=== PATIENT | male | born 1965 | race Caucasian/White ===

== ENCOUNTER → 2017-04-12 | Outpatient (CLI) | payer OTHER | LOC: BMCIMAGING 16:35 | PROVIDERS: ATTEND Podiatrist Foot & Ankle Surgery | DX: M79.671 Pain in right foot (principal) ==

== ENCOUNTER 2017-07-06 11:49 | Inpatient (IN) | payer OTHER ==
--- NOTE | 2017-07-06 12:19 | CPEKG ---
Heart Rate: 49 RR Interval: 1224 P-R Interval: 124 QRSD Interval: 86 QT Interval: 432 QTC Interval: 390 P [place]: 0 QRS [place]: 72 T Wave [place]: 69 EKG Severity - ABNORMAL ECG - EKG Impression: SINUS BRADYCARDIA EKG Impression: NONSPECIFIC T ABNORMALITIES, ANTERIOR LEADS Electronically Signed By: Susan Lepe 06-Jul-2017 16:19:06
[2017-07-06] MEDS ORDERED: ASPIRIN 81 MG CHEWABLE TAB PO ONE (12:39)
[2017-07-06 12:46] LABS: PLATELET COUNT 244 10^3/uL (150-400)
--- NOTE | 2017-07-06 12:50 | EDPHY ---
HPI/HX/ROS/PE/MDM Narrative: CHIEF COMPLAINT: Chest pain with exertion HISTORY OF PRESENT ILLNESS: The patient is a 52 y/o male with minimal medical history who arrives with his girlfriend at the recommendation of his PCP for evaluation of progressive episodes of chest pain over the last week. Last weekend during vigorous exercise while biking up [place] he noticed "diffuse, broad chest pain spreading down both arms and into the back of my neck." He attributed symptoms to being out of shape and pushed through with gradual resolution of symptoms by the end of the ride. He biked again the second day and developed similar symptoms. Three days ago he went on a low intensity bike ride across the city and developed the same pain, but much sooner in the ride and associated with sweating and shortness of breath. Yesterday he wore a heart rate monitor while on one of his typical hikes and developed the same symptoms about retirement up; he notes his heart rate was stable throughout. To see if he could elicit symptoms again, today he wore the monitor and walked up a small hill by his house, which caused symptoms almost immediately. At this point he stopped and called his PCP who referred him to the ED for evaluation. His pain is most severe substernally and he says, "my heart feels heavy" with occasional pulsing. It's possibly associated with dyspnea, but it's hard for him to tell if this is abnormal since symptoms have primarily occurred during exercise. Upon assessment, he currently feels at baseline with no pain. He denies personal history of cardiac disease history, diabetes, hypertension, hypercholesterolemia, or clotting disorders. He has a concerning family history of severe CAD in his father, who was also physically fit, that required bypass at age 55 and a sister who had a stroke age 47. He notes 2 years ago he had occasional chest pain and dyspnea that woke him from sleep. Due to this and his family history, he completed a stress test at that time, which he was told was normal. He also notes he has been treating tendonitis in his lower extremities using topical lidocaine and this morning had a branch lead perform trigger point injections of "homeopathic botanicals" in his right ankle, leg, and hip today. No fever, chills, palpitations, vomiting, diarrhea, urinary complaints, headache , lightheadedness, leg swelling. REVIEW OF SYSTEMS: Aside from elements discussed in the HPI, a comprehensive 10-point review of systems was reviewed and is negative. PAST MEDICAL HISTORY: Achilles tendonitis, plantar fascitis, environmental allergies FAMILY HISTORY: Father who was also quite fit needed cardiac bypass at age 55 for severe CAD. Sister had stroke of unknown etiology age 47. SOCIAL HISTORY: Girlfriend at bedside. 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 Employed. PCP: Dr. Ashkan Gregory VITAL SIGNS: Reviewed by me GENERAL: Well-developed, well-nourished, resting comfortably in no respiratory distress. HEENT: Atraumatic. Eyes: No icterus, no injection. Mouth: moist mucous membranes. No erythema or lesions. Neck: supple with no adenopathy, no JVD. LUNGS: Clear to auscultation bilaterally, no wheezes, rhonchi or rales. CARDIAC: Regular rate and rhythm, no rubs, murmurs or gallops. ABDOMEN: Soft, nontender, nondistended, bowel sounds normal. BACK: No CVA tenderness. EXTREMITIES: No trauma. No edema. Range of motion is normal throughout. NEURO: Alert and oriented, grossly nonfocal. SKIN: Warm and mild diaphoresis on back, no rash. PSYCHIATRIC: Normal mentation, no agitation. Portions of this note were transcribed by a biomedical engineering technologist. I personally performed a history, physical exam, medical decision making, and confirmed accuracy of information the transcribed note. ED Course: This is a healthy 52 y/o male who presents with a 1-week history of recurrent and progressive episodes of substernal chest pain at exertion. His father who was also physically fit had an 85% occlusion of his LAD and required bypass at age 55. He is currently asymptomatic and has an unremarkable exam apart from mild diaphoresis on his back. Presentation concerning for cardiac ischemia of LAD due to symptoms, family history, and abnormal EKG with biphasic precordial leads rental representative of Wellens criteria. Plan for IV, labs, chest x-ray, cardiology consult. 324mg PO aspirin administered. The 12 lead EKG was interpreted by myself. Sinus bradycardia rate 49 with abnormal biphasic T waves in precordial leads, meets Wellens criteria. See hard copy and/or "tracemaster" electronic copy for interpretation. 1300: Consulted with Dr. Rees, credentialing analyst. He will evaluate patient in the ED. Dr. Rees agrees with my impression that the patient's EKG is quite concerning for Wellens syndrome a most likely represents a stricture or clot or stenosis at the takeoff of the LAD. Patient was taken to the labor law professor by Dr. Rees. Critical care time spent by me, Dr. Lepe exclusively with this patient was 5 minutes, exclusive of PA time and exclusive of procedures. The organ system at risk was cardiac and I gave aspirin, interpret the EKG, consulted emergently with Cardiology, to prevent worsening of the patients condition. Critical care time included obtaining history, performing a physical exam, bedside monitoring of interventions, collecting and interpreting tests and discussion with consultants but not including time spent performing procedures. MDM: After history and physical examination, the differential for chest pain was considered, including but not limited to, myocardial ischemia, acute coronary syndrome, pulmonary embolus, chest wall pain, pleural inflammation and pulmonary infectious causes. - Data Points Imaging Results: Imaging Impressions Chest X-Ray 07/06/17 12:52 Impression: Normal. Imaging: I viewed and interpreted images myself Laboratory Results: Laboratory Results 07/06/17 12:33 07/06/17 12:33 07/06/17 07/06/17 12:33 12:33 WBC 5.58 10^3/uL 10^3/uL (3.80-9.50) RBC 5.36 10^6/uL 10^6/uL (4.40-6.38) Hgb 16.5 g/dL g/dL (13.7-17.5) Hct 47.5 % % (40.0-51.0) MCV 88.6 fL fL (81.5-99.8) MCH 30.8 pg pg (27.9-34.1) MCHC 34.7 g/dL g/dL (32.4-36.7) RDW 12.4 % % (11.5-15.2) Plt Count 244 10^3/uL 10^3/uL (150-400) MPV 10.6 fL fL (8.7-11.7) Neut % (Auto) 63.0 % % (39.3-74.2) Lymph % (Auto) 27.6 % % (15.0-45.0) [place] % (Auto) 7.9 % % (4.5-13.0) Eos % (Auto) 0.7 % % (0.6-7.6) Baso % (Auto) 0.4 % % (0.3-1.7) Nucleat RBC Rel Count 0.0 % % (0.0-0.2) Absolute Neuts (auto) 3.52 10^3/uL 10^3/uL (1.70-6.50) Absolute Lymphs (auto) 1.54 10^3/uL 10^3/uL (1.00-3.00) Absolute Monos (auto) 0.44 10^3/uL 10^3/uL (0.30-0.80) Absolute Eos (auto) 0.04 10^3/uL 10^3/uL (0.03-0.40) Absolute Basos (auto) 0.02 10^3/uL 10^3/uL (0.02-0.10) Absolute Nucleated RBC 0.00 10^3/uL 10^3/uL (0-0.01) Immature Gran % 0.4 % % (0.0-1.1) Immature Gran # 0.02 10^3/uL 10^3/uL (0.00-0.10) Sodium 143 mEq/L mEq/L (135-145) Potassium 4.3 mEq/L mEq/L (3.5-5.2) Chloride 106 mEq/L mEq/L (97-110) Carbon Dioxide 27 mEq/l mEq/l (22-31) Anion Gap 10 mEq/L mEq/L (8-16) BUN 13 mg/dL mg/dL (7-23) Creatinine 0.9 mg/dL mg/dL (0.7-1.3) Estimated GFR > 60 Glucose 89 mg/dL mg/dL (70-100) Calcium 9.5 mg/dL mg/dL (8.5-10.4) Total Bilirubin 0.6 mg/dL mg/dL (0.1-1.4) AST 21 IU/L IU/L (17-59) ALT 39 IU/L IU/L (21-72) Alkaline Phosphatase 60 IU/L IU/L (38-126) Troponin I < 0.012 ng/mL ng/mL (0.000-0.034) Total Protein 6.9 g/dL g/dL (6.3-8.2) Albumin 4.4 g/dL g/dL (3.5-5.0) Medications Given: Discontinued Medications Aspirin (Aspirin) 324 mg PO EDNOW ONE Stop: 07/06/17 12:40 Last Admin: 07/06/17 12:42 Dose: 324 mg General Time Seen by Provider: 07/06/17 12:25 Initial Vital Signs: Initial Vital Signs Temperature (C) 37.2 C 07/06/17 12:18 Heart Rate 45 L 07/06/17 12:18 Respiratory Rate 18 07/06/17 12:18 Blood Pressure 119/76 07/06/17 12:18 O2 Sat (%) 98 07/06/17 12:18 O2 Delivery Mode Room Air O2 (L/minute) 2 Allergies/Adverse Reactions: Penicillins Allergy (Verified 07/06/17 13:14) Hives Home Medications: Medication Instructions Recorded Fexofenadine HCl [Sonya Allergy] 60 mg PO DAILY 07/06/17 Fluticasone Nasal [Flonase Nasal 1 sprays NASAL DAILY PRN 07/06/17 [place]] Aspirin EC [Aspirin EC 325 mg (*)] 325 mg PO DAILY #60 tab 07/08/17 Lisinopril [Zestril 2.5 mg (*)] 2.5 mg PO DAILY #90 tab 07/08/17 Prasugrel HCl [Effient 10mg (*)] 10 mg PO DAILY #90 tab 07/08/17 Rosuvastatin Calcium [Crestor 20mg 20 mg PO DAILY #90 tab 07/08/17 (*)] Departure - Departure Disposition: [facility] Inpatient Acute Clinical Impression: wellens syndrome by EKG Chest pain Qualifiers: Chest pain type: chest pain due to myocardial ischemia Ischemic chest pain type : unstable angina pectoris Qualified Code(s): I20.0 - Unstable angina Condition: Good Report Scribed for: Susan Lepe Report Scribed by: Tracey uQiros Date of Report: 07/06/17 Time of Report: 12:58
[2017-07-06] MEDS ORDERED: CLOPIDOGREL BISULFATE 75 MG TAB ONE (13:03)
[2017-07-06] MEDS ORDERED: LIDOCAINE 1% 300 MG/30 ML SDV ONE (13:59)
[2017-07-06] MEDS ORDERED: fentaNYL 100 MCG/2 ML INJ ONE ×2 (14:00→14:29)
[2017-07-06] MEDS ORDERED: IOPAMIDOL (ISOVUE-370) 150 ML BTL IV ONE ×3 (14:00→15:12)
[2017-07-06] MEDS ORDERED: MIDAZOLAM 2 MG/2 ML VIAL ONE ×2 (14:00→14:29)
--- NOTE | 2017-07-06 14:20 | PDPROPOC ---
Sedation Plan of Care Sedation Plan of Care: vital signs stable, mental status noted, patient educated of risks, benefits, alternatives, patient can tolerate sedation ASA Classification: ASA 4 Planned drugs: fentanyl, midazolam Mallampati Score: Class 3 Mallampati Reference Image: Patient passed 3-3-2 rule?: Yes
--- NOTE | 2017-07-06 14:20 | ASMTLACE ---
[place] Acuity / Level of Answers: Yes Care: Did the patient have an inpatient admission? # of Emergency department Answers: 1-2 visits in the last 6 months Score: 4 Date Signed: 07/06/2017 02:19 PM Electronically Signed By:Harika Jansen RN
--- NOTE | 2017-07-06 14:27 | PDGENHP ---
History and Physical - Chief Complaint chest discomfort - History of Present Illness Pt with typical and classic angina increasing in frequency duration and intensity. He has a Wellen's T wave on EKG suggestive of LAD obstruction. History Information - Allergies/Home Medication List Allergies/Adverse Reactions: Penicillins Allergy (Verified 07/06/17 13:14) Hives Home Medications: Fexofenadine HCl [Sonya Allergy] 60 mg PO DAILY 07/06/17 [Last Taken 07/06/17] Fluticasone Nasal [Flonase Nasal [place] (RX)] 1 sprays NASAL DAILY PRN 07/06/17 [ Last Taken 5 Days Ago ~07/01/17] I have personally reviewed and updated: family history, medical history, social history, surgical history - Surgical History Reports: no pertinent surgical hx - Family History Positive for: father with history of CAD younger than 55 - Social History Smoking Status: Never smoked Alcohol Use: Occasionally Drug Use: None Review of Systems Review of Systems: Constitutional: Reports: no symptoms EENMT: Reports: no symptoms Cardiac: Reports: chest pain Respiratory: Reports: shortness of breath Genitourinary: Reports: no symptoms Muscolosketal: Reports: calf pain Skin: Reports: no symptoms Neurological: Reports: no symptoms Hematologic/Lymphatic: Reports: no symptoms Immunologic/Allergy: Reports: no symptoms Physical Exam Physical Exam: Temp Pulse Resp BP Pulse Ox 37.2 C 48 L 16 145/92 H 100 07/06/17 12:18 07/06/17 13:33 07/06/17 13:33 07/06/17 13:33 07/06/17 13:33 Constitutional: no apparent distress Eyes: PERRL, anicteric sclera Ears, Nose, Mouth, Throat: moist mucous membranes, hearing normal Cardiovascular: regular rate and rhythym, no murmur, rub, or gallop, bradycardia , No systolic murmur, No JVD, No tachycardia Respiratory: no respiratory distress Gastrointestinal: normoactive bowel sounds Genitourinary: no bladder fullness Skin: warm, normal color Musculoskeletal: full muscle strength Psychiatric: interacting appropriately, anxious Lab Data & Imaging Review 07/06/17 12:33 07/06/17 12:33 WBC 5.58 10^3/uL (3.80-9.50) 07/06/17 12:33 RBC 5.36 10^6/uL (4.40-6.38) 07/06/17 12:33 Hgb 16.5 g/dL (13.7-17.5) 07/06/17 12:33 Hct 47.5 % (40.0-51.0) 07/06/17 12:33 MCV 88.6 fL (81.5-99.8) 07/06/17 12:33 MCH 30.8 pg (27.9-34.1) 07/06/17 12:33 MCHC 34.7 g/dL (32.4-36.7) 07/06/17 12:33 RDW 12.4 % (11.5-15.2) 07/06/17 12:33 Plt Count 244 10^3/uL (150-400) 07/06/17 12:33 MPV 10.6 fL (8.7-11.7) 07/06/17 12:33 Neut % (Auto) 63.0 % (39.3-74.2) 07/06/17 12:33 Lymph % (Auto) 27.6 % (15.0-45.0) 07/06/17 12:33 [place] % (Auto) 7.9 % (4.5-13.0) 07/06/17 12:33 Eos % (Auto) 0.7 % (0.6-7.6) 07/06/17 12:33 Baso % (Auto) 0.4 % (0.3-1.7) 07/06/17 12:33 Nucleat RBC Rel Count 0.0 % (0.0-0.2) 07/06/17 12:33 Absolute Neuts (auto) 3.52 10^3/uL (1.70-6.50) 07/06/17 12:33 Absolute Lymphs (auto) 1.54 10^3/uL (1.00-3.00) 07/06/17 12:33 Absolute Monos (auto) 0.44 10^3/uL (0.30-0.80) 07/06/17 12:33 Absolute Eos (auto) 0.04 10^3/uL (0.03-0.40) 07/06/17 12:33 Absolute Basos (auto) 0.02 10^3/uL (0.02-0.10) 07/06/17 12:33 Absolute Nucleated RBC 0.00 10^3/uL (0-0.01) 07/06/17 12:33 Immature Gran % 0.4 % (0.0-1.1) 07/06/17 12:33 Immature Gran # 0.02 10^3/uL (0.00-0.10) 07/06/17 12:33 Sodium 143 mEq/L (135-145) 07/06/17 12:33 Potassium 4.3 mEq/L (3.5-5.2) 07/06/17 12:33 Chloride 106 mEq/L (97-110) 07/06/17 12:33 Carbon Dioxide 27 mEq/l (22-31) 07/06/17 12:33 Anion Gap 10 mEq/L (8-16) 07/06/17 12:33 BUN 13 mg/dL (7-23) 07/06/17 12:33 Creatinine 0.9 mg/dL (0.7-1.3) 07/06/17 12:33 Estimated GFR > 60 07/06/17 12:33 Glucose 89 mg/dL (70-100) 07/06/17 12:33 Calcium 9.5 mg/dL (8.5-10.4) 07/06/17 12:33 Total Bilirubin 0.6 mg/dL (0.1-1.4) 07/06/17 12:33 AST 21 IU/L (17-59) 07/06/17 12:33 ALT 39 IU/L (21-72) 07/06/17 12:33 Alkaline Phosphatase 60 IU/L (38-126) 07/06/17 12:33 Troponin I < 0.012 ng/mL (0.000-0.034) 07/06/17 12:33 Total Protein 6.9 g/dL (6.3-8.2) 07/06/17 12:33 Albumin 4.4 g/dL (3.5-5.0) 07/06/17 12:33 Imaging Review: CXR is normal except for plaque in aortic knob Visualized and Interpreted Chest x-ray results: Yes Chest X-Ray results: no infiltrate Visualized and Interpreted EKG results: Yes EKG additional interpertation: sinus zoraida with Wellen's T wave Assessment & Plan Assessment: Angina pectoris unstable in presentation and new in onset. Needs cath because of 90% chance of LAD obstruction. I have discussed risk,benefits, and alternative therapy. Thoroughly discussed risks involved with procedure including , stroke, and CO.
[2017-07-06] MEDS ORDERED: BIVALIRUDIN 250 MG/5 ML VIAL IV ONE (14:46)
[2017-07-06] MEDS ORDERED: NITROGLYCERIN 1,500 MCG/15 ML VIAL MISC ONE (14:59)
[2017-07-06] MEDS ORDERED: PRASUGREL HCL 10 MG TAB ONE (15:33)
--- NOTE | 2017-07-06 15:38 | PDDXCAT ---
Diagnostic Cath Note - . Date: 07/06/17 Certified Pesticide Applicator: Cabrera Indication: other (unstable angina with abnormal EKG and Wellen's T wave...) Patient Problems: Problems Problem Status Onset Chest pain Acute
[2017-07-06] MEDS ORDERED: HYDROCODONE/APAP 5/325 TAB PO PRN (15:39)
[2017-07-06] MEDS ORDERED: NITROGLYCERIN 0.4 MG BTL SL PRN (15:39)
[2017-07-06] MEDS ORDERED: ONDANSETRON 4 MG/2 ML VIAL IVP PRN (15:39)
[2017-07-06] MEDS ORDERED: PRASUGREL HCL 10 MG TAB PO ONE (15:39)
[2017-07-06] MEDS ORDERED: TEMAZEPAM 15 MG CAP PO PRN (15:39)
[2017-07-06] MEDS ORDERED: OXYCODONE/APAP 5/325 TAB PO PRN (15:39)
[2017-07-06] MEDS ORDERED: ATROPINE SULFATE 1 MG/10 ML SYR IVP PRN (15:39)
[2017-07-06] MEDS ORDERED: LORazepam 2 MG/ML INJ IVP PRN (15:39)
[2017-07-06] MEDS ORDERED: NS 1,000 ML IV SCH (15:45)
--- NOTE | 2017-07-06 15:48 | PDDXCAT ---
Diagnostic Cath Note - . Date: 07/06/17 R&D Engineer: Cabrera Indication: other (unstable angina with a Wellen's T wave) - Procedure Access: right groin Procedure: left heart catheterization, coronary angiography, left ventriculogram - Materials Left Heart Cath size: 6F Left Heart Cath materials: standard multipack (JL4, JR4, pigtail) - Findings-Left Heart Catheterization LM: 6 mm in size and relatively short bifurcates into an LAD and circumflex system. LAD: 3.5 mm in size proximally with 95% lesion and LAM III flow distally. 80% ostial lesion of small D2 branch coming off in disease region of LAD. LCX: 3 mm in size proximally with 71% plaque area stenosis by QCA of Beta branch of obtuse marginal system. RCA: Dominant vessel and 4 mm in size proximally with a 40-50% hazy stenosis in the mid right proximal to acute marginal branches. EDP: 12mmHg LVEF: 55% with mild mid and distal anterior wall hypokinesis. No significant mitral regurgitation. 3 sinuses of valsalva consistent with 3 leaflet aortic valve. No evidence of dissection or dandre aneurysm. Wall motion: See above. Patient Problems: Problems Problem Status Onset Chest pain Acute
--- NOTE | 2017-07-06 16:03 | CPEKG ---
Heart Rate: 41 RR Interval: 1463 P-R Interval: 140 QRSD Interval: 90 QT Interval: 492 QTC Interval: 407 P Coleman: -2 QRS Coleman: 53 T Wave Coleman: 52 EKG Severity - ABNORMAL ECG - EKG Impression: SINUS BRADYCARDIA EKG Impression: ABNORMAL T, CONSIDER ISCHEMIA, ANT-LAT LEADS EKG Impression: WELLENS SYNDROME-- ABNORMAL EKG-- Electronically Signed By: Susan Lepe 06-Jul-2017 16:18:54
--- NOTE | 2017-07-06 16:04 | PDDXCAT ---
Diagnostic Cath Note - . Date: 07/06/17 Complications: NONE Closure method: manual pressure Assessment: Critical and flow limiting disease of proximal LAD as well as moderately severe disease of left circ as noted above. Plan: See intervention note below. The patient will require dual antiplatelet therapy with ASA and Effient to complete 1 year post stent implant with no elective surgery for the next 3 months. Any decision to stop dual antiplatelet therapy in the exception of life threatening bleeding should involve my office at [phone]. the patient will require moderate to high dose statin therapy as well as low dose NARA therapy to improve vascular health and reduce bed bug exterminator risk of /CA. Significant CAD for a 52 year old man. Intervention: JL4 guiding catheter for guide support, EBU 3.5 for circumflex intervention, 0.014 intuition wire for LAD, 0.014 Choice floppy for circumflex... Lad 95% pre and 0% post PTCA stent with pre dilation with a 2.0/15 mm Emerge balloon followed by stenting with a 3X20mm 28 Synergy ERNA with LAM III flow pre and post in LAD and all vessels...Mild pinch of small D2 branch less than 1.5 in size and 80% stenosis to 95% ostial stenosis post LAD stent. 71% plaque area stenosis with 0% residual post primary stent with a 2.5X12mm Synergy drug eluting stent. Patient Problems: Problems Problem Status Onset Chest pain Acute
[2017-07-07 04:06] LABS: PLATELET COUNT 214 10^3/uL (150-400)
--- NOTE | 2017-07-07 09:08 | PDCARPN ---
Cardiology Progress Note Chief Complaint: Chest Discomfort / pain Assessment/Plan: Assessment: Acute Coronary Syndrome. Presented to ER with chest tightness /pressure pain. EKG was abnormal with Wellens sign and was taken Urgently to Cardiac farm laborer by Camilo Rees MD. CAD S/p Cardiac Angiogram: LAD found to have 95% lesion, and 80 % ostial lesion of small D2 branch off the disease area of the LAD. LCx 71% lesion and both PCI with Synergy ERNA. RCA 40 to 50 % lesion, to be treated medically. His EF is 55% with mild mid to distal anterior wall hypokinesis. He is on Effient and ASA 325 mg daily, and started o0n low dose Bystolic due to his bradycardic rate of 40's. This HR is usual for him to have a heart rate in the 40's as he is an avid bicyclist. Over an hour of time was spent with he and his reviewing the procedure and answering questions. He would like to see the angiogram films, and I will ask Garry Epperson MD to review those with him tomorrow. Arrhythmias: NS-VT, Bradycardia (as noted above). Plan: Remain in hospital today to monitor his rhythm closely. Possible discharge tomorrow. 07/07/17 09:04 07/07/17 12:58 Subjective: I feel great today. Not aware of any rapid heart rates. No chest pain or SOB. Reviewed/Discussed With: family, multidisciplinary team Time Spent With Patient: 60 minutes Objective: Vital Signs (8 Hrs) Temp Pulse Resp BP Pulse Ox 07/07/17 04:00 37.1 C 53 L 16 123/77 H 97 Intake/Output (24 Hrs) 07/06/17 07/07/17 07/08/17 05:59 05:59 06:59 Intake Total 1575 Output Total 625 Balance 950 Intake: Oral (ml) 550 IV Intake (ml) 25 IV Infused (ml) 1000 Ns 1,000 ml @ 100 mls/hr 1000 IV CONT FILEMON Rx#: [id number] Output: Urine (ml) 625 Urinal 625 Other: Weight 78.925 kg Intake Quantity Yes Sufficient Number of Voids Toilet 1 Result Diagrams: 07/07/17 03:38 07/07/17 03:38 - Physical Exam Constitutional: no apparent distress Cardiovascular: regular rate and rhythm, no murmurs, no rubs, no gallops Peripheral Pulses: 2+: dorsalis-pedis (R), dorsalis-pedis (L) Respiratory: clear to auscultate bilat, no crackles, no wheezes Skin: warm, no edema Neurologic: AAOx3 Psychiatric: cooperative, interactive ICD10 Worksheet Patient Problems: Problems Problem Status Onset Chest pain Acute
[2017-07-07] MEDS: ROSUVASTATIN CALCIUM 20 MG TAB PO SCH (09:12)
[2017-07-07] MEDS: LISINOPRIL 2.5 MG TAB PO SCH (09:12)
[2017-07-07] MEDS: ASPIRIN EC 325 MG TAB PO SCH (09:13)
[2017-07-07] MEDS: PRASUGREL HCL 10 MG TAB PO SCH (09:13)
--- NOTE | 2017-07-07 10:37 | PDMN ---
Medical Necessity Medical necessity: C/M review: Patient meets INPT crtieria under MCG m-89 Chest pain, M-40 Angina, M-510 Supraventricular arrhythmias: Acute chest pain, acute coronary syndrome, unstable angina with a Wellen's T wave requiring emergent 07/06/2017 cardiac catheterization - [facility] which showed 95% stenosis LAD lesion, left circumflex 71% plaque area stenosis, RCA dominant vessel 40-50% stenosis in mid right proximal to acute marginal branches requiring PCI with stent x 2 to LAD and left circumflex, acute arrhythmias - NS-VT, acute and persistent bradycardia - heart rate 42-53 requiring ongoing cardiac monitoring, close monitoring, dual antiplatelet therapy - oral aspirin, Effient. IMPORT CUSTOMS CLEARING AGENT expects > 2 MN LOS for ongoing med nec for eval and TX of above.
--- NOTE | 2017-07-07 10:48 | CPEKG ---
Heart Rate: 51 RR Interval: 1176 P-R Interval: 140 QRSD Interval: 86 QT Interval: 428 QTC Interval: 395 P [place]: 30 QRS [place]: 71 T Wave [place]: 67 EKG Severity - ABNORMAL ECG - EKG Impression: SINUS RHYTHM EKG Impression: ABNORMAL T, CONSIDER ISCHEMIA, ANTERIOR LEADS Electronically Signed By: Gabino Chaudhari 07-Jul-2017 15:21:30
[2017-07-07] MEDS ORDERED: FLUTICASONE NASAL 120 SPRAYS/16 GM MDI EACHNARE PRN (11:14)
--- NOTE | 2017-07-07 16:17 | ASMTCMCOM ---
CM Note CM Note Notes: Chart reviewed. Patient 52 year old male s/p angiogram and stents. No current needs identified at this time. CM available should needs arise. Date Signed: 07/07/2017 04:16 PM Electronically Signed By:Baylee Khan RN
[2017-07-08] MEDS: PRASUGREL HCL 10 MG TAB PO SCH (08:58)
[2017-07-08] MEDS: LISINOPRIL 2.5 MG TAB PO SCH (08:58)
[2017-07-08] MEDS: ASPIRIN EC 325 MG TAB PO SCH (08:58)
[2017-07-08] MEDS: ROSUVASTATIN CALCIUM 20 MG TAB PO SCH (08:58)
[2017-07-08] MEDS ORDERED: NON-FORMULARY NEW DRUG (Fexofenadine Hcl [Allegra Allergy] 60 MG) PO SCH (09:00)
[2017-07-08] MEDS ORDERED: CETIRIZINE 10 MG TAB PO SCH (09:00)
[2017-07-08 10:03] VITALS: TEMP 98
[2017-07-08 12:14] VITALS: BP 112/77; PULSE 58; RESP 17; O2SAT 96
--- NOTE | 2017-07-08 12:17 | PDCARPN ---
Cardiology Progress Note Chief Complaint: No cardiovascular complaints today. Multiple questions about residual CAD to the RCA Assessment/Plan: Assessment: Patient is a 52 y/o male with previously unremarkable past medical history (no prior HTN, HLP, DM, or CAD), who presented with complaints of chest pains. Angiography yesterday with critical LAD lesion and critical OM2 lesion. There was also a lesion to the RCA, but assessment suggested 35% stenosis. Normal LVEF was noted with subtle wall motion abnormalities appreciated. Today, the patient is doing very well. No cardiovascular complaints of chest pains or pressure. No issues with newly added therapy, but the patient did report that he has been prone to nose bleeds in the past. Plan: (1) Discharge to home today (2) Would continue therapy on ASA and Effient (3) ACEi therapy alone given the blood pressures noted and slower heart rates (4) Statins (Crestor) should continue with reassessment of cholesterol and LFTs in 5 weeks (5) Cardiac rehab should be set up (6) Would arrange for patient to have ETT (non nuclear) for non invasive assessment of the RCA lesion (7) Patient should be seen by cardiology in 7-10 days Subjective: No active cardiovascular complaints Reviewed/Discussed With: family, multidisciplinary team Objective: Vital Signs (8 Hrs) Temp Pulse Resp BP Pulse Ox 07/08/17 12:10 58 L 17 112/77 96 07/08/17 08:45 36.7 C 48 L 12 124/86 H 98 Intake/Output (24 Hrs) 07/07/17 07/08/17 07/09/17 04:59 05:59 05:59 Intake Total Balance Intake: Oral (ml) Other: Intake Quantity Sufficient Number of Voids Toilet Result Diagrams: 07/07/17 03:38 07/07/17 03:38 Telemetry: sinus rhythm - Physical Exam Constitutional: WDWN, healthy appearing, no apparent distress Eyes: PERRL, EOMI Ears, Nose, Mouth, Throat: moist mucous membranes Cardiovascular: regular rate and rhythm, no murmurs, no rubs, no gallops, pulses symmetric bilat, No jugular vein distention Peripheral Pulses: 2+: dorsalis-pedis (R), dorsalis-pedis (L) Respiratory: clear to auscultate bilat, no crackles, no wheezes Gastrointestinal: normoactive bowel sounds, no tenderness Skin: no rashes, no edema Musculoskeletal: no muscular tenderness Neurologic: AAOx3, CN II-XII grossly intact Psychiatric: cooperative, interactive, following commands ICD10 Worksheet Patient Problems: Problems Problem Status Onset Chest pain Acute
--- NOTE | 2017-07-08 14:35 | PDDCSUM ---
Discharge Summary Discharge Summary: Admission date: 07/06/17 Discharge date: 07/08/17 Admission diagnosis: Acute coronary syndrome Procedures performed: (1) Serial ECG and enzymes (2) Telemetry monitoring (3) Left heart catheterization (4) PCI to critical lesions of the LAD and LCX vessels Hospital stay: Patient was taken to the cardiac cath lab radiology technician by Dr. Tyler Rees given symptoms and ECG changes noted. Critical lesions were noted to the LAD and the LCX OM2. A third lesion was noted to the RCA, but did not appear to be critical. LVEF was noted to be normal with subtle hypokinesis to the mid and distal anterior wall. Patient was placed on the PCU overnight and monitored. Non sustained VT was noted overnight after angiogram as well as bradycardia, and the patient was kept overnight one night further. No VT was noted on night two. No cardiovascular complaints of chest pains or pressure. Discharge medications (1) ASA (325 mg) (2) Effient (10 mg) (3) Crestor (20 mg) (4) Lisinopril (2.5 mg) Would have the patient seen by cardiology in 7 days. Cardiac rehab should be arranged and started Would arrange for patient to have ETT given the residual RCA lesion noted Cholesterol and LFTs should be reassessed in 5 weeks.
== END 2017-07-08 13:31 | disposition home or self-care (01) | DRG 247 ==
LOC: F2W 18:33 → OBSVTOIN 07-07 10:15
PROVIDERS: ADMIT Internal Medicine Cardiovascular Disease; ATTEND Internal Medicine Cardiovascular Disease
DX: I25.110 Atherosclerotic heart disease of native coronary artery with unstable angina pectoris (principal); R94.31 Abnormal electrocardiogram [ECG] [EKG]; Z82.49 Family history of ischemic heart disease and other diseases of the circulatory system; Z82.3 Family history of stroke; Z88.0 Allergy status to penicillin
CPT/HCPCS: C1725; C1769; C1874; C1887; C9600; G0378; J0461; J0583; J1200; J1644; J2250; J3010; Q9967

== ENCOUNTER 2017-10-10 22:39 | Emergency (ER) | payer OTHER ==
[2017-10-10 23:00] VITALS: BP 121/80
--- NOTE | 2017-10-10 23:04 | EDPHY ---
H & P Stated Complaint: NOSE BLEED SINCE 11 AM/ON BLOOD THINNERS, HX OF NOSE BLEEDS Time Seen by Provider: 10/10/17 23:02 HPI/ROS: HPI: This is a 52-year-old male who presents with Chief Complaint: NOSE BLEED SINCE 11 AM/ON BLOOD THINNERS, HX OF NOSE BLEEDS Location: Right nostril Quality: Bleeding Duration: 12 hr Signs and Symptoms: no fever, no nausea, no vomiting, no photophobia, no noise sensitivity, no neck stiffness, no ear pain, no tinnitus, no nasal congestion, no sinus pressure, no weakness, no radiation, no aura Timing: Acute, intermittent episodes Severity: Moderate Context: Patient has a history of cardiac stents and takes On Effient and aspirin for the last year. He reports that he has almost daily nose bleeds but normally is relieved by direct pressure and using Afrin spray. He reports that he does have moderate seasonal allergies that have been irritating his nasal passages over the last few days. Patient reports that he used Afrin 3 times today as well as applied direct pressure with minimal relief. Denies any chest pain, shortness of breath, dizziness. Patient reports that he has been seen by ENT and told that he is not a candidate for embolization. Modifying Factors: See above Comment: ROS: see HPI Constitutional: No fever, no chills, no weight loss Eyes: No blurred vision Respiratory: No shortness of breath, no cough Cardiovascular: No chest pain, no palpitations Gastrointestinal: No nausea, no vomiting, no diarrhea, no hematemesis, no blood in stool Genitourinary: No dysuria, no blood in urine Extremities: No myalgias, no edema Neurologic: No weakness, no numbness Skin: No rashes, no petechiae Hematologic: No bruising, no bleeding MEDICAL/SURGICAL/SOCIAL HISTORY: Medical history: HX NOSE BLEEDS, CARDIAC STENTS 06/2017 ON BLOOD THINNERS Surgical history: Denies Social history: Family history noncontributory. CONSTITUTIONAL: Polite and cooperative adult male, awake and alert, no obvious distress HEENT: Atraumatic and normocephalic, PERRL, EOMI. Nares patent; right nare no active bleeding seen; no posterior pharynx bleeding noted; no rhinorrhea; no nasal mucosal edema. Tympanic membranes clear. Oropharynx clear, no exudate and moist pink mucosa. Airway patent. No lymphadenopathy. No meningismus. Cardiovascular: Normal S1/S2, regular rate, regular rhythm, without murmur rub or gallop. PULMONARY/CHEST: Symmetrical and nontender. Clear to auscultation bilaterally. Good air movement. No accessory muscle usage. ABDOMEN: Soft, nondistended, nontender, no rebound, no guarding, no peritoneal signs, no masses or organomegaly. No CVAT. EXTREMITIES: 2/2 pulses, strength 5/5, no deformities, no clubbing, no cyanosis or edema. NEUROLOGICAL: no focal neuro deficits. GCS 15. SKIN: Warm and dry, no erythema. no rash. Good capillary refill. Source: Patient Exam Limitations: No limitations - Personal History Current Tetanus Diphtheria and Acellular Pertussis (TDAP): Yes - Medical/Surgical History Hx Asthma: No Hx Chronic Respiratory Disease: No Hx Diabetes: No Hx Cardiac Disease: Yes Hx Renal Disease: No Hx Cirrhosis: No Hx Alcoholism: No Hx HIV/AIDS: No Hx Splenectomy or Spleen Trauma: No Other PMH: HX NOSE BLEEDS, CARDIAC STENTS 06/2017 ON BLOOD THINNERS - Social History Smoking Status: Never smoked Constitutional: Initial Vital Signs Temperature (C) 36.3 C 10/10/17 22:51 Heart Rate 54 L 10/10/17 22:51 Respiratory Rate 16 10/10/17 22:51 Blood Pressure 121/80 H 10/10/17 22:51 O2 Sat (%) 98 10/10/17 22:51 O2 Delivery Mode Room Air Allergies/Adverse Reactions: Penicillins Allergy (Verified 07/06/17 13:14) Hives Home Medications: Medication Instructions Recorded Fexofenadine HCl [Sonya Allergy] 60 mg PO DAILY 07/06/17 Fluticasone Nasal [Flonase Nasal 1 sprays NASAL DAILY PRN 07/06/17 [place]] Aspirin EC [Aspirin EC 325 mg (*)] 325 mg PO DAILY #60 tab 07/08/17 Prasugrel HCl [Effient 10mg (*)] 10 mg PO DAILY #90 tab 07/08/17 Rosuvastatin Calcium [Crestor 20mg 20 mg PO DAILY #90 tab 07/08/17 (*)] Medical Decision Making Procedures: Procedure: Epistaxis control. After verbal consent was obtained, the patient was not anesthetized. The anterior epistaxis was identified. The patient was treated with TXA and cotton balls. Following the procedure the patient was re-examined and the bleeding was well controlled. The patient tolerated the procedure well. The procedure was performed by myself. ED Course/Re-evaluation: Vital signs stable upon arrival. No elevated blood pressure. Active bleeding has completely resolved upon arrival to the emergency room. TXA and cotton balls placed. No indication for laboratory studies to be drawn as asymptomatic. This patient was seen under the supervision of my secondary supervising physician. I evaluated care for this patient independently. Discussed this patient with Dr. Christianson who did not see the patient. Differential Diagnosis: Differential diagnosis includes but is not limited to epistaxis, nasal drainage , coagulopathy. - Data Points Medications Given: Discontinued Medications Tranexamic Acid (Cyklokapron) 500 mg TP EDNOW ONE Stop: 10/10/17 23:12 Last Admin: 10/10/17 23:14 Dose: Not Given Departure - Departure Disposition: Home, Routine, Self-Care Clinical Impression: Acute anterior epistaxis Condition: Good Instructions: Nosebleed (ED) Additional Instructions: Please continue to use Aquaphor nasal moisturizer as well apply direct pressure with nosebleeds. You may remove the cotton ball out of your nostrils in the morning. Please wet them 1st or apply Vaseline to the outer edges before removing them. Referrals: Ashkan Gregory MD [Primary Care Provider] - As per Instructions
[2017-10-10] MEDS ORDERED: TRANEXAMIC ACID 1,000 MG/10 ML VIAL TP ONE (23:11)
== END 2017-10-10 23:54 | disposition home or self-care (01) ==
DX: R04.0 Epistaxis (principal); Z79.82 Long term (current) use of aspirin; Z95.5 Presence of coronary angioplasty implant and graft

== ENCOUNTER 2018-02-03 01:36 | Emergency (ER) | payer OTHER ==
[2018-02-03] MEDS ORDERED: TRANEXAMIC ACID 1,000 MG/10 ML VIAL TP ONE (01:56)
--- NOTE | 2018-02-03 02:35 | EDPHY ---
H & P Stated Complaint: R SIDED NOSE BLEED FOR 1.5 HOURS Time Seen by Provider: 02/03/18 02:00 HPI/ROS: HPI The patient presents with right-sided epistaxis which has been present for the last 1 and 0.5 hr which started after blowing his nose. He has a history of similar though more severe bleed which occurred several months ago and improved with TXA. He has not been able to control the bleeding at home which has been constant and moderate. He is on Effient and aspirin, previously on 07/22 aspirin, now 1 baby aspirin. He has been seen by ENT, Dr. Nj. REVIEW OF SYSTEMS 10 systems were reviewed and negative with the exception of the elements mentioned in the history of present illness. PMHx: CAD with stent in place, history of epistaxis Soc Hx: Here with his PHYSICAL General Appearance: Alert, no distress Eyes: Pupils equal and round no pallor or injection ENT, Mouth: Right-sided epistaxis is present, on inspection of right naris there is no obvious source of bleed identified, Mucous membranes moist Respiratory: There are no retractions, lungs are clear to auscultation Cardiovascular: Regular rate and rhythm Gastrointestinal: Abdomen is soft and non-tender, no masses, bowel sounds normal Neurological: A&O, moves all extremities Skin: Warm and dry, no rashes Musculoskeletal: Neck is supple non tender Extremities: symmetrical, full range of motion Psychiatric: Patient is oriented X 3, there is no agitation Source: Patient Exam Limitations: No limitations - Personal History Current Tetanus/Diphtheria Vaccine: Yes - Medical/Surgical History Hx Asthma: No Hx Chronic Respiratory Disease: No Hx Diabetes: No Hx Cardiac Disease: Yes Hx Renal Disease: No Hx Cirrhosis: No Hx Alcoholism: No Hx HIV/AIDS: No Hx Splenectomy or Spleen Trauma: No Other PMH: HX NOSE BLEEDS, CARDIAC STENTS 06/2017 ON BLOOD THINNERS - Social History Smoking Status: Never smoked Constitutional: Initial Vital Signs Temperature (C) 37.0 C 02/03/18 01:40 Heart Rate 58 L 02/03/18 01:40 Respiratory Rate 18 02/03/18 01:40 Blood Pressure 131/77 H 02/03/18 01:40 O2 Sat (%) 97 02/03/18 01:40 O2 Delivery Mode Room Air Allergies/Adverse Reactions: Penicillins Allergy (Verified 03/09/18 13:14) Hives Home Medications: Medication Instructions Recorded Fexofenadine HCl [Sonya Allergy] 60 mg PO DAILY 07/06/17 Aspirin EC [Aspirin EC 325 mg (*)] 325 mg PO DAILY #60 tab 07/08/17 Prasugrel HCl [Effient 10mg (*)] 10 mg PO DAILY #90 tab 07/08/17 Rosuvastatin Calcium [Crestor 20mg 20 mg PO DAILY #90 tab 07/08/17 (*)] Co Q-10 02/03/18 Medical Decision Making Procedures: NOSE BLEED Procedure: Epistaxis control. Indication: nosebleed not controlled by direct pressure. Risks, benefits, alternatives discussed with patient and consent obtained. The right nares was anesthetized with Afrin. The anterior epistaxis was identified. The patient was treated with packing with tranexamic acid soaked cotton ball. Following the procedure the patient was re-examined and the bleeding was well controlled. The patient tolerated the procedure well. The procedure was performed by myself. Differential Diagnosis: 52-year-old man on Effient and aspirin 81 mg presents with recurrent right- sided epistaxis, appears to be anterior. Likely suspect this is related to his medication and bleed is coming from Kiesselbach's plexus, I have considered posterior nosebleed as well. Patient was treated with good result with tranexamic acid soaked cotton ball. Bleeding diminished. The patient will be discharged from the emergency department. He is happy with this plan. - Data Points Medications Given: Discontinued Medications Tranexamic Acid (Cyklokapron) 500 mg TP EDNOW ONE Stop: 02/03/18 01:57 Last Admin: 02/03/18 02:37 Dose: 500 mg Departure - Departure Disposition: Home, Routine, Self-Care Clinical Impression: Acute anterior epistaxis Condition: Good Instructions: Nosebleed (ED) Referrals: Cornelius Nj MD [Medical Doctor] - As per Instructions
[2018-02-03 02:42] VITALS: BP 131/74
== END 2018-02-03 02:41 | disposition home or self-care (01) ==
PROC: 2Y41X5Z Packing of Nasal Region using Packing Material (ICD-10-PCS; principal; 2018-02-03)
DX: R04.0 Epistaxis (principal); Z79.82 Long term (current) use of aspirin